=== PATIENT | female | born 1975 | race Caucasian/White ===

== ENCOUNTER → 2023-12-22 | Emergency (ER) | payer OTHER ==
[~2023-12-22] MED LIST: lisinopriL 20 MG TAB ONE
--- NOTE | 2023-12-22 16:02 | RAD REPORT ---
EXAM DESCRIPTION: CT - Head Brain Wo Cont - 12/22/2023 3:43 pm CLINICAL HISTORY: Dizziness COMPARISON: none TECHNIQUE: Computed axial tomography of the head was obtained. IV contrast was not requested. All CT scans are performed using dose optimization technique as appropriate and may include automated exposure control or mA/KV adjustment according to patient size. FINDINGS: An intracranial bleed is not seen The ventricles are normal in caliber No significant hypodense areas within the brain visualized No extra-axial fluid collection is noted. Fluid within the sinuses/ mastoids is not seen IMPRESSION: No acute intracranial abnormality is seen If patient's symptoms persist MRI of the brain would be recommended
[2023-12-22 16:04] LABS: Absolute Eosinophils 0.1 K/uL (0-0.5); Absolute Lymphocytes (CBC) 1.5 K/uL (0.7-4.9); Absolute Monocytes 0.4 K/uL (0.1-1.3); Absolute Neutrophil 3.7 K/uL (1.8-8.0); Basophils % 0.7 % (0-1.3); Eosinophils % 2.4 % (0-4.4); Hematocrit 37.1 % (36.0-45.0); Hemoglobin 12.7 g/dL (12.0-15.0); Lymphocytes % 25.8 % (15.3-44.8); MCH 30.1 pg (27.0-35.0); MCHC 34.1 g/dL (32.0-36.0); MCV 88.2 fL (80-100); MPV 8.2 fL (7.6-11.3); Monocytes % 6.2 % (3.3-12.3); Neutrophils % 64.9 % (41.7-73.7); Nucleated Red Blood Cells % 0.4 % (0-0); Platelets 74 thou/uL (152-406); RBC Red Blood Cell Count 4.21 M/uL (3.86-4.86); Red Cell Distribution Width 14.6 % (12.1-15.2)
[2023-12-22 16:21] LABS: Anion Gap 7.9 mEq/L (5.0-15.0); Potassium 3.9 mEq/L (3.5-5.1); Troponin High Sensitivity 5.4 pg/mL (<58.9)
--- NOTE | 2023-12-22 17:03 | ER ---
Nurse's Notes [facility] Name: Karla Meeks Age: 48 yrs Sex: Female : 1975 Arrival Date: 12/22/2023 Time: 15:06 Bed 19 Private MD: Diagnosis: Essential (primary) hypertension Presentation: 12/21 15:15 Chief complaint: Patient states: High blood pressure x 3 months, doesn't feel right hb today. Coronavirus screen: At this time, the client does not indicate any symptoms associated with coronavirus-19. Ebola Screen: No symptoms or risks identified at this time. Initial Sepsis Screen: Does the patient meet any 2 criteria? No. Patient's initial sepsis screen is negative. Does the patient have a suspected source of infection? No. Patient's initial sepsis screen is negative. Risk Assessment: Do you want to hurt yourself or someone else? Patient reports no desire to harm self or others. Onset of symptoms was December 22, 2023. 15:15 Method Of Arrival: Ambulatory hb 15:15 Acuity: ABBY 3 hb Triage Assessment: 15:19 General: Appears in no apparent distress. Behavior is calm, cooperative. Pain: Denies hb pain. Neuro: Level of Consciousness is awake, alert, obeys commands, Oriented to person, place, time, situation. Cardiovascular: Patient's skin is warm and dry. Respiratory: Respiratory effort is even, unlabored, Respiratory pattern is regular, symmetrical. 17:16 GI: Reports nausea. 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 - Social history:: Smoking status: Patient denies any tobacco usage or history of. - Family history:: not pertinent. - Hospitalizations: : No recent hospitalization is reported. Screenin:35 [facility] ED Fall Risk Assessment (Adult) History of falling in the last 3 months, ll1 including since admission No falls in past 3 months (0 pts) Confusion or Disorientation No (0 pts) Intoxicated or Sedated No (0 pts) Impaired Gait No (0 pts) Mobility Assist Device Used No (0 pt) Altered Elimination No (0 pt) Score/Fall Risk Level 0 - 2 = Low Risk Oriented to surroundings, Hourly rounding (assess needs \T\ fall precautionary measures) done. Abuse screen: Denies threats or abuse. Nutritional screening: No deficits noted. Tuberculosis screening: No symptoms or risk factors identified. Assessment: 16:34 General: Appears uncomfortable, Behavior is calm, cooperative, appropriate for age, ll1 Reports fatigue for not feeling well for 3 months. Neuro: No deficits noted. Cardiovascular: Reports high BP. 17:15 Reassessment: No changes from previously documented assessment. Patient and/or family ll1 updated on plan of care and expected duration. Pain level reassessed. Patient is alert, oriented x 3, equal unlabored respirations, skin warm/dry/pink. Vital Signs: 15:15 BP 160 / 92; Pulse 85; Resp 16; Temp 98.2(TE); Pulse Ox 96% on R/A; hb 16:32 BP 183 / 90; Pulse 79; Resp 17; Pulse Ox 98% on R/A; ll1 17:15 BP 171 / 88; Pulse 78; Resp 16; Pulse Ox 98% on R/A; ll1 ED Course: 15:11 Patient arrived in ED. rg4 15:12 Adria Joe MD is Attending Physician. rn 15:18 Triage completed. hb 15:19 Arm band placed on. hb 15:45 CT Head Brain wo Cont In Process Unspecified. EDMS 15:49 Initial lab(s) drawn, by me, sent to lab. Inserted saline lock: 22 gauge in right iw forearm, using aseptic technique. Blood collected. 16:26 Renée Carrasco, RN is Primary Nurse. ll1 16:29 XRAY Chest (1 view) In Process Unspecified. EDMS 16:33 Patient has correct armband on for positive identification. Client placed on continuous ll1 cardiac and pulse oximetry monitoring. NIBP monitoring applied. quality assurance monitor on. 16:33 No provider procedures requiring assistance completed. EKG done, by ED staff, reviewed ll1 by Adria Joe MD. 17:15 IV discontinued, intact, bleeding controlled, No redness/swelling at site. Pressure ll1 dressing applied. 17:16 Provided Education on: n/a. ll1 Administered Medications: 16:33 Drug: Lisinopril PO 20 mg PO once Route: PO; ll1 17:16 Follow up: Response: No adverse reaction ll1 Medication: 16:35 VIS not applicable for this client. ll1 Outcome: 17:02 Discharge ordered by . rn 17:15 Discharged to home ambulatory, ll1 17:15 Condition: stable 17:15 Discharge instructions given to patient, Instructed on discharge instructions, follow up and referral plans. medication usage, Demonstrated understanding of instructions, follow-up care, medications, Prescriptions given X 2, 17:16 Patient left the ED. ll1 Signatures: Dispatcher [employer] EDJulia Marr RN HARIS iw Adria Joe MD MD rn Baxter, Heather, RN RN hb Garcia, Rubi 4 Renée Carrasco RN RN ll1 Corrections: (The following items were deleted from the chart) 15:24 15:18 Home Meds: Lisinopril Oral; hb hb 15:24 15:18 Immunization history: Adult Immunizations up to date, hb hb
--- NOTE | 2023-12-22 17:03 | EDPHYS ---
Physician Documentation [facility] Name: Karla Meeks Age: 48 yrs Sex: Female : 1975 Arrival Date: 12/22/2023 Time: 15:06 Bed 19 Private MD: ED Physician Adria Joe HPI: 12/21 16:16 This 48 yrs old Female presents to ER via Ambulatory with complaints of Blood Pressure rn Problem. 16:17 The patient has elevated blood pressure and discovered this at home. Onset: The rn symptoms/episode began/occurred at an unknown time. Modifying factors: The symptoms are aggravated by discontinuation of meds. Severity of symptoms: At its worst the blood pressure was moderate, in the emergency department the blood pressure is unchanged. The patient has experienced similar episodes in the past. Patient reports out of her clonidine for a little while, has not noticed blood pressure elevation for the last few weeks. Reports mild headache, malaise, spontaneous subconjunctival hemorrhages. Denies any chest pain or difficulty breathing. No abdominal or back pain. No focal neurological deficits. Used to take clonidine daily but ran out. Currently just taking amlodipine. Her significant other had an appointment nearby so she thought she would swing by the ER for an evaluation.. 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 - Social history:: Smoking status: Patient denies any tobacco usage or history of. - Family history:: not pertinent. - Hospitalizations: : No recent hospitalization is reported. ROS: 16:17 Constitutional: Negative for fever, chills, and weight loss, Eyes: Negative for injury, rn pain, redness, and discharge, Neck: Negative for injury, pain, and swelling, Cardiovascular: Negative for chest pain, palpitations, and edema, Respiratory: Negative for shortness of breath, cough, wheezing, and pleuritic chest pain, Abdomen/GI: Negative for abdominal pain, nausea, vomiting, diarrhea, and constipation, Back: Negative for injury and pain, MS/Extremity: Negative for injury and deformity, Skin: Negative for injury, rash, and discoloration, Neuro: Positive for headache and generalized weakness, negative for focal weakness or tingling. No seizure. Exam: 16:17 Constitutional: This is a well developed, well nourished patient who is awake, alert, rn and in no acute distress. Ambulatory to room without difficulty or assistance. Head/Face: Normocephalic, atraumatic. Eyes: Right subconjunctival hemorrhage. Pupils equal and reactive to light Neck: Trachea midline, no masses palpated, and no cervical lymphadenopathy. Supple, full range of motion without nuchal rigidity, or vertebral point tenderness. No Meningismus. Cardiovascular: Regular rate and rhythm. No pulse deficits. Respiratory: No increased work of breathing, no retractions or nasal flaring. Abdomen/GI: Soft, non-tender MS/ Extremity: Pulses equal, no cyanosis. Neuro: Awake and alert, GCS 15, oriented to person, place, time, and situation. Cranial nerves II-XII grossly intact. Motor strength 5/5 in all extremities. Sensory grossly intact. Cerebellar exam normal. Normal gait. 17:49 ECG was reviewed by the Attending Physician. rn Vital Signs: 15:15 BP 160 / 92; Pulse 85; Resp 16; Temp 98.2(TE); Pulse Ox 96% on R/A; hb 16:32 BP 183 / 90; Pulse 79; Resp 17; Pulse Ox 98% on R/A; ll1 17:15 BP 171 / 88; Pulse 78; Resp 16; Pulse Ox 98% on R/A; ll1 MDM: 15:12 Patient medically screened. rn 16:58 Differential diagnosis: hypertensive crisis, Malignant HTN. Data reviewed: vital signs, rn nurses notes, lab test result(s), EKG, radiologic studies, plain films, and as a result, I will discharge patient. Care significantly affected by the following chronic conditions: Hypertension. Care significantly affected by the following chronic conditions: Liver Disease. Counseling: I had a detailed discussion with the patient and/or guardian regarding the historical points, exam findings, and any diagnostic results supporting the discharge/admit diagnosis, lab results, radiology results, the need for further work-up and treatment in the hospital. Response to treatment: the patient's symptoms have mildly improved after treatment, and as a result, I will discharge patient. Special discussion: I discussed with the patient/guardian in detail that at this point there is no indication for admission to the hospital. It is understood, however, that if the symptoms persist or worsen the patient needs to return immediately for re-evaluation. Based on the history and exam findings, there is no indication for further emergent testing or inpatient evaluation. I discussed with the patient/guardian the need to see the primary care provider for further evaluation of the symptoms. 16:58 ED course: No acute findings and workup for endorgan damage regarding her blood rn pressure. CT head negative. No ischemia on ECG. Will add beta-angus instead of her clonidine given still hypertensive and will have additive effect of preventing or minimizing variceal bleeding in this cirrhotic patient with 2 previous variceal bleeds. Urged her to take blood pressure diary and follow-up with PCP for further management and titration of her blood pressure medication.. 12/21 15:27 Order name: Basic Metabolic Panel; Complete Time: 16:12/21 15:27 Order name: CBC with Diff; Complete Time: 16:12/21 15:27 Order name: NT PRO-BNP; Complete Time: 16:12/21 15:27 Order name: Troponin HS; Complete Time: 16:12/21 15:27 Order name: XRAY Chest (1 view); Complete Time: 17:13 12/21 15:27 Order name: CT Head Brain wo Cont; Complete Time: 16:12/21 15:27 Order name: EKG; Complete Time: 15:12/21 15:27 Order name: Cardiac monitoring; Complete Time: 16:12/21 15:27 Order name: EKG - Nurse/Tech; Complete Time: 16:12/21 15:27 Order name: IV Saline Lock; Complete Time: 16:12/21 15:27 Order name: Labs collected and sent; Complete Time: 16:12/21 15:27 Order name: O2 Per Protocol; Complete Time: 16:12/21 15:27 Order name: O2 Sat Monitoring; Complete Time: 16:33 rn EC:49 Rate is 72 beats/min. Rhythm is regular. QRS Kersey is Normal. CA interval is normal. QRS rn interval is normal. QT interval is normal. No Q waves. T waves are Normal. No ST changes noted. Clinical impression: Normal ECG. Interpreted by me. Reviewed by me. Administered Medications: 16:33 Drug: Lisinopril PO 20 mg PO once Route: PO; ll1 17:16 Follow up: Response: No adverse reaction ll1 Disposition Summary: 12/22/23 17:02 Discharge Ordered Notes: Location: Home rn Problem: an ongoing problem rn Symptoms: have improved rn Condition: Stable rn Diagnosis - Essential (primary) hypertension rn Followup: rn - With: Private Physician - When: 7 - 10 days - Reason: Recheck today's complaints, Re-evaluation by your physician Discharge Instructions: - Discharge Summary Sheet rn - Hypertension, Adult rn - How to Take Your Blood Pressure, [id number] rn - Managing Your Hypertension rn Forms: - Medication Reconciliation Form rn - Thank You Letter rn - Antibiotic procurement internship - Prescription Opioid Use rn - Patient Portal Instructions rn - Leadership Thank You Letter rn Prescriptions: - amlodipine 10 mg Oral tablet - take 1 tablet ORAL route daily; 60 tablet; Refills: 0, Product Selection rn Permitted - Carvedilol 6.25 mg Oral tablet - take 1 tablet ORAL route 2 times per day with food; 120 tablet; Refills: 0, rn Product Selection Permitted Signatures: Dispatcher [employer] EDAdria Manzo MD MD rn Baxter, Heather RN Renée Wang RN RN ll1 Corrections: (The following items were deleted from the chart) 15:24 15:18 Home Meds: Lisinopril Oral; hb hb 15:24 15:18 Immunization history: Adult Immunizations up to date, hb hb
--- NOTE | 2023-12-22 17:12 | RAD REPORT ---
EXAM DESCRIPTION: Ronn Single View12/22/2023 4:27 pm CLINICAL HISTORY: Hypertension COMPARISON: none FINDINGS: The lungs appear clear of acute infiltrate. The heart is normal size IMPRESSION: No acute abnormalities displayed
[2023-12-22 18:01] VITALS: BP 171/88; TEMP 98.2; O2SAT 98
== END ==
LOC: ER 15:06
DX: I10 Essential (primary) hypertension (principal)
CPT/HCPCS: 36415; 70450; 71045; 80048; 83880; 84484; 85025; 93005

== ENCOUNTER 2024-07-08 13:25 | Emergency (ER) | payer OTHER, SELFPAY ==
[2024-07-08 14:40] LABS: Absolute Monocytes 0.2 K/uL (0.1-1.3); Absolute Neutrophil 1.7 K/uL (1.8-8.0); Basophils % 1.1 % (0-1.3); Eosinophils % 0.9 % (0-4.4); Hematocrit 19.6 % (36.0-45.0); Lymphocytes % 32.8 % (15.3-44.8); MCH 20.7 pg (27.0-35.0); MCHC 29.5 g/dL (32.0-36.0); MCV 70.3 fL (80-100); MPV 8.1 fL (7.6-11.3); Monocytes % 7.3 % (3.3-12.3); Neutrophils % 57.9 % (41.7-73.7); Nucleated Red Blood Cells % 0.1 % (0-0); Platelets 111 thou/uL (152-406); RBC Red Blood Cell Count 2.79 M/uL (3.86-4.86); Red Cell Distribution Width 25.1 % (12.1-15.2)
[2024-07-08 14:46] LABS: PT Prothrombin Time 13.9 SECONDS (9.4-12.5); Protime INR 1.25
[2024-07-08 14:49] LABS: Hemoglobin 5.8 g/dL (12.0-15.0)
[2024-07-08 14:50] LABS: Anisocytosis 3+; Blood Morphology Comment NOTED (NOT SEEN); Hypochromasia 1+; Platelet Estimate DECR; White Blood Cell Scan OK (OK)
[2024-07-08 14:57] LABS: Albumin 3.4 g/dL (3.4-5.0); Albumin/Globulin Ratio 0.9 (1.1-1.8); Bilirubin Direct 0.2 mg/dL (0-0.2); Bilirubin Indirect, Calculated 0.5 mg/dL (0.2-0.8); Bilirubin Total 0.7 mg/dL (0.2-1.0); Globulin 3.8 g/dL (2.3-3.5); Protein, Total 7.2 g/dL (6.4-8.2)
[2024-07-08 14:59] LABS: Anion Gap 7.4 mEq/L (5.0-15.0); Potassium 3.4 mEq/L (3.5-5.1); Troponin High Sensitivity 6.8 pg/mL (<58.9)
--- NOTE | 2024-07-08 15:14 | RAD REPORT ---
EXAMINATION: ONE VIEW CHEST XR CLINICAL INDICATION: DYSPNEA TECHNIQUE: Frontal chest projection is submitted. Examination is limited by patient positioning and t echnique. COMPARISON: 12/22/2023 FINDINGS: Mild interstitial prominence, nonspecific. The heart is normal in size. No displaced fractures identi fied. IMPRESSION: Mild nonspecific interstitial prominence is a nonspecific finding. This can be seen in cases of chron ic bronchitis, asthma or nonspecific interstitial pneumonitis.
--- NOTE | 2024-07-08 15:34 | RAD REPORT ---
EXAMINATION: CT ABDOMEN AND PELVIS WITH CONTRAST CLINICAL INDICATION: upper abd pain, hx of cirrhosis, pancreatitis TECHNIQUE: CT abdomen and pelvis was performed, after the administration of IV contrast, as per [facility] protocol. Axial, sagittal and coronal reconstructions were obtained. One or more of the following dose reduction techniques were used: Automated exposure control, adjustment of the mA and k V according to patient size, and iterative reconstruction. Unless otherwise specified, incidental findings do not require dedicated imaging follow-up. COMPARISON: No prior exam. FINDINGS: LOWER CHEST: 6 mm nonspecific nodule right lung base. Mild interstitial thickening in both lung bases . Trace bilateral pleural effusions. LIVER: Mild fatty liver is present. No focal lesion or biliary dilatation is seen. Nodular liver con tour also present. Cholecystectomy clips. SPLEEN: The spleen appears mildly to moderately enlarged. PANCREAS: No mass, ductal dilation, or imelda-pancreatic fluid. ADRENALS: 24 mm right adrenal mass. KIDNEYS: Normal size and contour. No hydronephrosis. GASTROINTESTINAL TRACT: No evidence of free air, significant intra-abdominal free fluid, bowel obstru ction or abscess. Nonspecific mild thickening of several small bowel loops. APPENDIX: Appendix not visualized, but no inflammatory changes in region of appendix. LYMPH NODES: No lymphadenopathy. MUSCULOSKELETAL: Moderate lumbosacral degenerative changes. ADDITIONAL FINDINGS: Mild pelvic free fluid. IMPRESSION: Mild liver cirrhosis pattern with moderate splenomegaly. Several thickened small bowel loops may represent portal enteropathy. 24 mm right adrenal mass statistically most likely to be a benign adenoma. Nonemergent MRI follow-up could be obtained if clinically indicated.
--- NOTE | 2024-07-08 15:37 | EDPHYS ---
Physician Documentation [facility] Name: Karla Meeks Age: 49 yrs Sex: Female : 1975 Arrival Date: 07/08/2024 Time: 13:25 Bed 4 Private MD: ED Physician Clement Dubois HPI: 07/08 14:05 This 49 yrs old Female presents to ER via Ambulatory with complaints of ec2 Shortness Of Breath. 14:06 Patient with history of cirrhosis secondary to hepatitis C arrives today for evaluation ec2 of upper abdominal pain and chest pain. Ongoing for 1.5 months. No specific alleviating or exacerbating factors. . 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 - Infectious Disease History:: Denies. - Social history:: Smoking status: Patient reports the use of cigarette tobacco products. ROS: 14:06 Constitutional: as per hpi ec2 Exam: 14:06 Constitutional: GEN: NAD Head: atraumatic Eyes: EOMI Ears: External ears are ec2 normal. CV: regular rate LUNGS: no respiratory distress ABD: non-distended SKIN: no evidence of rashes MSK: no evidence of trauma Vital Signs: 13:45 BP 136 / 92; Pulse 82; Resp 18 S; Temp 97.8(TE); Pulse Ox 100% on R/A; Weight 72.12 kg aa5 (R); Height 5 ft. 4 in. (R); 14:27 BP 148 / 63; Pulse 75; Resp 16; Pulse Ox 100% on R/A; cm10 16:12 BP 140 / 88; Pulse 72; Resp 16; Pulse Ox 100% on R/A; cm10 17:00 BP 137 / 77; Pulse 77; Resp 18; Pulse Ox 100% on R/A; cm10 17:44 BP 138 / 67; Pulse 70; Resp 18; Pulse Ox 96% ; cm10 18:00 BP 124 / 67; Pulse 70; Resp 16; Pulse Ox 100% on R/A; cm10 18:30 BP 134 / 70; Pulse 70; Resp 16; Pulse Ox 99% on R/A; cm10 19:00 BP 148 / 67; Pulse 67; Resp 16; Pulse Ox 100% on R/A; cm10 13:45 Body Mass Index 27.29 (72.12 kg, 162.56 cm) aa5 MDM: 14:06 Data reviewed: vital signs. ED course: Patient arrives today for abdominal pain and ec2 chest pain. Examination remarkable for nontoxic and appears otherwise in no acute distress. Obtain lab work, CT imaging. Differential diagnoses include processes such as pancreatitis, liver disease, ACS, doubt PE or dissection.. 14:33 ED course: EKG independently reviewed and interpreted by me, shows normal sinus rhythm, ec2 rate of 80, no acute ST segment elevations, intervals are nonactionable.. 14:54 ED course: Patient with a significant anemia with a hemoglobin of 5.8. Will type and ec2 screen and transfuse. . 15:19 ED course: Metabolic profile shows slight hypokalemia with a potassium of 3.1. Lipase ec2 is slightly elevated. LFTs are nonactionable. Troponin is within normal ranges. Chest x-ray shows nonspecific findings. . 15:36 ED course: Nonacute CT scan. Will transfer for GI capable facility given the patient's ec2 cirrhosis, anemia, concern for black stools as well.. 15:37 Patient medically screened. ec2 16:45 ED course: Discussed case w/ ICU doc at [facility] who prefers [facility] admission. ec2 Discussed case w/ GI doc and Hospitalist at [facility], also discussed w/ ICU doc at [facility]. . 17:18 ED course: Ultimately pt to be admitted to [facility]. . ec2 07/08 13:59 Order name: Basic Metabolic Panel; Complete Time: 15:19 ec2 07/08 13:59 Order name: CBC with Diff; Complete Time: 14:54 ec2 07/08 13:59 Order name: NT PRO-BNP; Complete Time: 15:19 ec2 07/08 13:59 Order name: PT-INR; Complete Time: 14:54 ec2 07/08 13:59 Order name: Troponin HS; Complete Time: 15:19 ec2 07/08 14:05 Order name: Lipase; Complete Time: 15:19 ec2 07/08 14:05 Order name: LFT's; Complete Time: 15:19 ec2 07/08 14:49 Order name: Type And Screen ec2 07/08 14:50 Order name: CBC Smear Scan; Complete Time: 14:54 EDMS 07/08 16:33 Order name: ABO/RH no charge; Complete Time: 16:40 EDMS 07/08 16:37 Order name: Packed RBC Leukored EDMS 07/08 13:59 Order name: XRAY Chest (1 view); Complete Time: 15:19 ec2 07/08 14:05 Order name: CT Abd/Pelvis - IV Contrast Only; Complete Time: 15:36 ec2 07/08 13:59 Order name: EKG; Complete Time: 14:00 ec2 07/08 13:59 Order name: Cardiac monitoring; Complete Time: 14:34 ec2 07/08 13:59 Order name: EKG - Nurse/Tech; Complete Time: 14:34 ec2 07/08 13:59 Order name: IV Saline Lock; Complete Time: 14:39 ec2 07/08 13:59 Order name: Labs collected and sent; Complete Time: 14:39 ec2 07/08 13:59 Order name: O2 Per Protocol; Complete Time: 14:34 ec2 07/08 13:59 Order name: O2 Sat Monitoring; Complete Time: 14:34 ec2 07/08 14:55 Order name: Consent for Blood Transfusion; Complete Time: 16:28 ec2 Administered Medications: 16:28 Drug: Pantoprazole IVP 80 mg IVP once Route: IVP; Site: right forearm; 10 17:00 Follow up: Response: No adverse reaction [facility] 16:28 Drug: Pantoprazole IV 8 mg/hr IV at 25 ml/hr continuous; (Standard dilution is 80 mg in cm10 250 mL NS) Route: IV; Rate: 25 ml/hr; Site: right forearm; 19:19 Follow up: Response: No adverse reaction; IV Status: Infusion continued upon transfer 10 17:39 Drug: Rocephin IV 1 grams IV at calculated rate once; Given slow IV push per pharmacy cm10 instructions Route: IV; Rate: calculated rate; Site: left forearm; 17:45 Follow up: Response: No adverse reaction; IV Status: Completed infusion; IV Intake: [id number] 17:39 Drug: Octreotide IV 50 mcg IV at bolus once Route: IV; Rate: bolus; Site: left forearm; cm10 17:45 Follow up: Response: No adverse reaction; IV Status: Completed infusion; IV Intake: cm10 0.5ml 18:41 Drug: Ondansetron IVP 4 mg IVP once; over 2 minutes Route: IVP; Site: right forearm; cm10 19:19 Follow up: Response: No adverse reaction cm10 Disposition: 15:36 Critical Care:. ec2 Disposition Summary: 07/08/24 15:37 Transfer Ordered Notes: Transfer Location: Other Acute Care Facility ec2 Reason: Higher level of care ec2 Condition: Stable ec2 Problem: an acute exacerbation ec2 Symptoms: are unchanged ec2 Accepting Physician: transferring doc(07/08/24 19:21) cm10 Diagnosis - GI Bleed/ Gastrointestinal hemorrhage, unspecified ec2 - Anemia, unspecified ec2 - Other cirrhosis of liver ec2 Forms: - Medication Reconciliation Form ec2 - SBAR form ec2 Critical care time excluding procedures: 15:36 Critical care time: Bedside Care: 30 minutes, Consultation: 5 minutes. Total time: 35 ec2 minutes Signatures: Dispatcher [employer] Eleanor Sylvester RN RN aa5 Anne Gorman RN RN cm10 Clement Dubois MD MD ec2 Corrections: (The following items were deleted from the chart) 14:57 14:57 BB Add On+BB.LAB.BRZ ordered. EDMS EDMS 16:24 15:37 transferring doc ec2 ec2 16:36 14:55 PACKED RBC LEUKORED+BB.LAB.BRZ ordered. EDMS EDMS 16:36 14:57 ABO/RH typing ordered. EDMS EDMS 16:36 14:57 Antibody Screen ordered. EDMS EDMS 19:21 16:24 transferring doc ec2 cm10
--- NOTE | 2024-07-08 15:37 | ER ---
Nurse's Notes [facility] Name: Karla Meeks Age: 49 yrs Sex: Female : 1975 Arrival Date: 07/08/2024 Time: 13:25 Bed 4 Private MD: Diagnosis: GI Bleed/ Gastrointestinal hemorrhage, unspecified;Anemia, unspecified;Other cirrhosis of liver Presentation: 07/08 13:45 Chief complaint: Patient states: SOB that began 1 1/2 months ago. Pt also reports upper aa5 abdominal pain. Coronavirus screen: At this time, the client does not indicate any symptoms associated with coronavirus-19. Ebola Screen: Patient denies travel to an Ebola-affected area in the 21 days before illness onset. Initial Sepsis Screen: Does the patient meet any 2 criteria? No. Patient's initial sepsis screen is negative. Does the patient have a suspected source of infection? No. Patient's initial sepsis screen is negative. Risk Assessment: Do you want to hurt yourself or someone else? Patient reports no desire to harm self or others. Onset of symptoms was May 2024. 13:45 Method Of Arrival: Ambulatory aa5 13:45 Acuity: ABBY 3 aa5 Triage Assessment: 16:00 Respiratory: Onset: The symptoms/episode began/occurred 6 weeks, the patient reports cm10 symptoms have resolved. 16:00 General: Appears in no apparent distress. comfortable, Behavior is calm, cooperative. 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 - Infectious Disease History:: Denies. - Social history:: Smoking status: Patient reports the use of cigarette tobacco products. Screenin:38 [facility] ED Fall Risk Assessment (Adult) History of falling in the last 3 months, cm10 including since admission No falls in past 3 months (0 pts) Confusion or Disorientation No (0 pts) Intoxicated or Sedated No (0 pts) Impaired Gait No (0 pts) Mobility Assist Device Used No (0 pt) Altered Elimination No (0 pt) Score/Fall Risk Level 0 - 2 = Low Risk Oriented to surroundings, Maintained a safe environment, Hourly rounding (assess needs \T\ fall precautionary measures) done. Abuse screen: Denies threats or abuse. Denies injuries from another. Nutritional screening: No deficits noted. Tuberculosis screening: No symptoms or risk factors identified. Assessment: 14:37 General: Appears in no apparent distress. comfortable, Behavior is calm, cooperative, cm10 appropriate for age. Pain: Complains of pain in abdomen. Neuro: No deficits noted. Level of Consciousness is awake, alert, obeys commands, Oriented to person, place, time, situation, Appropriate for age. Cardiovascular: No deficits noted. Heart tones present Patient's skin is warm and dry. Rhythm is regular. Respiratory: Airway is patent Respiratory effort is even, unlabored, Respiratory pattern is regular, symmetrical, Breath sounds are clear bilaterally. GI: Reports lower abdominal pain, upper abdominal pain. Derm: No deficits noted. Skin is intact, Skin is pink, warm \T\ dry. 17:46 Reassessment: Patient appears in no apparent distress at this time. No changes from cm10 previously documented assessment. Patient and/or family updated on plan of care and expected duration. Pain level reassessed. Patient is alert, oriented x 3, equal unlabored respirations, skin warm/dry/pink. 17:53 Reassessment: Blood transfusion initiated at this time. cm10 18:08 Reassessment: Pt tolerating blood transfusion well at this time. cm10 18:53 Reassessment: Patient appears in no apparent distress at this time. No changes from cm10 previously documented assessment. Patient and/or family updated on plan of care and expected duration. Pain level reassessed. Patient is alert, oriented x 3, equal unlabored respirations, skin warm/dry/pink. Pt tolerating blood transfusion well. No S/S of symptoms of transfusion reaction. Vital Signs: 13:45 BP 136 / 92; Pulse 82; Resp 18 S; Temp 97.8(TE); Pulse Ox 100% on R/A; Weight 72.12 kg aa5 (R); Height 5 ft. 4 in. (R); 14:27 BP 148 / 63; Pulse 75; Resp 16; Pulse Ox 100% on R/A; cm10 16:12 BP 140 / 88; Pulse 72; Resp 16; Pulse Ox 100% on R/A; cm10 17:00 BP 137 / 77; Pulse 77; Resp 18; Pulse Ox 100% on R/A; cm10 17:44 BP 138 / 67; Pulse 70; Resp 18; Pulse Ox 96% ; cm10 18:00 BP 124 / 67; Pulse 70; Resp 16; Pulse Ox 100% on R/A; cm10 18:30 BP 134 / 70; Pulse 70; Resp 16; Pulse Ox 99% on R/A; cm10 19:00 BP 148 / 67; Pulse 67; Resp 16; Pulse Ox 100% on R/A; cm10 13:45 Body Mass Index 27.29 (72.12 kg, 162.56 cm) aa5 ED Course: 13:37 Patient arrived in ED. mg5 13:37 Clement Dubois MD is Attending Physician. ec2 13:45 Arm band placed on. aa5 13:46 Triage completed. aa5 14:16 Patient placed in an exam room, on a stretcher. ll1 14:18 Anne Gorman, RN is Primary Nurse. cm10 14:34 EKG done, by ED staff, reviewed by Clement Dubois MD. mb9 14:38 Patient has correct armband on for positive identification. Bed in low position. Call cm10 light in reach. Side rails up X 1. Provided Education on: ER process and procedures.. Client placed on continuous cardiac and pulse oximetry monitoring. NIBP monitoring applied. alarm security or surveillance monitor on. Door closed. Lights dimmed. Warm blanket given. Pillow given. 14:38 Initial lab(s) drawn, by me, sent to lab. Inserted saline lock: 20 gauge in right cm10 forearm, using aseptic technique. Blood collected. Flushed with 10 mL NS. 14:39 LFT's Sent. cm10 14:39 Lipase Sent. cm10 14:39 Basic Metabolic Panel Sent. cm10 14:39 CBC with Diff Sent. cm10 14:39 NT PRO-BNP Sent. cm10 14:39 PT-INR Sent. cm10 14:39 Troponin HS Sent. cm10 15:09 XRAY Chest (1 view) In Process Unspecified. EDMS 15:26 CT Abd/Pelvis - IV Contrast Only In Process Unspecified. EDMS 15:30 Missed attempt(s): 22 gauge in right hand. forearm. Bleeding controlled, band aid cm10 applied, catheter tip intact. 16:00 initiated a transfer with Shasta Adams Rn from the [facility] transfer center. eb 16:[address] Lennox Rodriguez the laboratory cureman generation manager for [facility] with eb Dr. Dubois for patient transfer consultation. 16:38 Connected the hospitalist generation manager for [facility] with Dr. Dubois for patient eb transfer consultation. 16:45 Accessed peripheral vein via ultrasound, utilizing dynamic ultrasound technique Clean \T\ cm10 dry. Dressing intact. Good blood return. Flushes easily. 20G Left forearm. 17:14 connected the laboratory cureman and the hospitalist generation manager for [facility] with Dr. gayle Dubois for patient transfer consultation. 17:19 administrative approval given by Shasta Adams Rn/ patient has been accepted to [facility] 15 tower bed - 1509/ Dr. Reggie Longo has accepted the patient in transfer/ report to be called to [phone]. 19:15 Handoff report given to David Deshpande with [facility] who assumes care of patient. cm10 Blood checked with Raymond at the bedside prior to handing off care. Pt leaving A\T\Ox4, respirations even and unlabored. No S/S of transfusion reaction. Pt leaving with blood and Protonix infusing. 19:20 No provider procedures requiring assistance completed. Patient transferred, IV remains cm10 in place. Administered Medications: 16:28 Drug: Pantoprazole IVP 80 mg IVP once Route: IVP; Site: right forearm; cm10 17:00 Follow up: Response: No adverse reaction cm10 16:28 Drug: Pantoprazole IV 8 mg/hr IV at 25 ml/hr continuous; (Standard dilution is 80 mg in cm10 250 mL NS) Route: IV; Rate: 25 ml/hr; Site: right forearm; 19:19 Follow up: Response: No adverse reaction; IV Status: Infusion continued upon transfer cm10 17:39 Drug: Rocephin IV 1 grams IV at calculated rate once; Given slow IV push per pharmacy cm10 instructions Route: IV; Rate: calculated rate; Site: left forearm; 17:45 Follow up: Response: No adverse reaction; IV Status: Completed infusion; IV Intake: [id number] 17:39 Drug: Octreotide IV 50 mcg IV at bolus once Route: IV; Rate: bolus; Site: left forearm; cm10 17:45 Follow up: Response: No adverse reaction; IV Status: Completed infusion; IV Intake: cm10 0.5ml 18:41 Drug: Ondansetron IVP 4 mg IVP once; over 2 minutes Route: IVP; Site: right forearm; cm10 19:19 Follow up: Response: No adverse reaction cm10 Medication: 14:38 VIS not applicable for this client. cm10 17:53 Blood products: PRBCs X 1 unit given. See transfusion record Blood transfusion cm10 initiated at this time. Intake: 17:45 IV: 10ml; Total: 10ml. cm10 17:45 IV: 1ml; Total: 11ml. cm10 Outcome: 15:37 ER care complete, transfer ordered by . ec2 19:19 [facility]red by [facility] to [facility], cm10 19:19 Condition: stable 19:19 Instructed on the need for transfer, 19:21 Patient left the ED. cm10 Signatures: Dispatcher [employer] EDEleanor Ortega RN RN aa5 Brittny Kiran Lynsay, RN RN ll1 Deepa Leiva, RN RN mb9 Anne Gorman RN RN cm10 Brook Alcantar 5 Clement Dubois MD MD ec2 Corrections: (The following items were deleted from the chart) 13:47 13:45 BP 136 / 92; Pulse 82bpm; Resp 18bpm; Spontaneous; Pulse Ox 100% RA; Temp 97.8F aa5 Temporal; aa5
[2024-07-08] MEDS ORDERED: PANTOPRAZOLE 40 MG INJ ONE (16:03)
[2024-07-08] MEDS ORDERED: NA CHLORIDE 0.9% 250 ML ONE ×2 (16:04→17:41)
[2024-07-08] MEDS ORDERED: CEFTRIAXONE 1000 MG/VIAL ONE (17:24)
[2024-07-08] MEDS ORDERED: OCTREOTIDE ACETATE 100 MCG/ML ONE (17:24)
[2024-07-08] MEDS ORDERED: ONDANSETRON 4 MG/2 ML VIAL ONE (18:23)
[2024-07-08 23:18] VITALS: TEMP 97.8
[2024-07-08 23:30] VITALS: BP 148/67; O2SAT 100
== END 2024-07-08 19:21 ==
LOC: ER 13:25
PROC: 30233N1 Transfusion of Nonautologous Red Blood Cells into Peripheral Vein, Percutaneous Approach (ICD-10-PCS; principal; 2024-07-08)
DX: D64.9 Anemia, unspecified (principal); K74.69 Other cirrhosis of liver
CPT/HCPCS: 36415; 71045; 74177; 80048; 80076; 83690; 83880; 84484; 85025; 85610; 86850; 86900; 86901; 86920; 93005; J0696; J2354; J2405; J2470; J7050; P9016; Q9967

== ENCOUNTER 2024-07-11 16:19 | Emergency (ER) | payer SELFPAY ==
[2024-07-11 16:55] LABS: Absolute Eosinophils 0.1 K/uL (0-0.5); Absolute Lymphocytes (CBC) 1.1 K/uL (0.7-4.9); Absolute Monocytes 0.2 K/uL (0.1-1.3); Absolute Neutrophil 2.1 K/uL (1.8-8.0); Basophils % 0.5 % (0-1.3); Eosinophils % 1.6 % (0-4.4); Hematocrit 28.1 % (36.0-45.0); Hemoglobin 8.9 g/dL (12.0-15.0); Lymphocytes % 30.4 % (15.3-44.8); MCH 24.1 pg (27.0-35.0); MCHC 31.7 g/dL (32.0-36.0); MPV 8.5 fL (7.6-11.3); Monocytes % 5.7 % (3.3-12.3); Neutrophils % 61.8 % (41.7-73.7); Nucleated Red Blood Cells % 0.2 % (0-0); Platelets 82 thou/uL (152-406); Red Cell Distribution Width 25.1 % (12.1-15.2)
[2024-07-11] MEDS ORDERED: MAGNES/ALUMIN/SIMET 30ML UCUP ONE (16:56)
[2024-07-11] MEDS ORDERED: LIDOCAINE VISCOUS 2% 10ML ORAL SOLN ONE (16:57)
[2024-07-11] MEDS ORDERED: FAMOTIDINE 20 MG/2 ML VIAL IV ONE (16:57)
[2024-07-11 16:58] LABS: Protime INR 1.26
[2024-07-11] MEDS ORDERED: FAMOTIDINE 20 MG TAB ONE (17:09)
[2024-07-11 17:14] LABS: Anion Gap 5.7 mEq/L (5.0-15.0); Potassium 3.7 mEq/L (3.5-5.1); Troponin High Sensitivity 7.1 pg/mL (<58.9)
--- NOTE | 2024-07-11 17:48 | EDPHYS ---
Physician Documentation [facility] Name: Karla Meeks Age: 49 yrs Sex: Female : 1975 Arrival Date: 07/11/2024 Time: 16:19 Bed 2 Private MD: ED Physician Clement Dubois HPI: 07/11 16:44 This 49 yrs old Female presents to ER via Ambulatory with complaints of Chest ec2 Pain. 16:44 Patient arrives today for left-sided nonexertional chest pain that started last night. ec2 Patient was recently admitted to the hospital with a GI bleed, found to have varices that were not bleeding, subsequently banded. Patient reports no bleeding, states that the pain is different than most recent visits and patient denies any abdominal pain or melanic stools.. Historical: - Allergies: 16:32 No Known Allergies; ap3 - PMHx: 16:32 cirrhosis of liver; HEP C; Hypertension; ap3 - PSHx: 16:32 section; abdominal sx; Cholecystectomy; tubal ligation; ap3 - Immunization history:: Client reports having NOT received the Covid vaccine. Flu vaccine is not up to date. - Infectious Disease History:: Denies. - Social history:: Smoking status: Patient/guardian denies using tobacco, Stopped _ months ago 1. ROS: 16:44 Constitutional: as per hpi ec2 Exam: 16:44 Constitutional: GEN: NAD Head: atraumatic Eyes: EOMI Ears: External ears are ec2 normal. CV: regular rate LUNGS: no respiratory distress ABD: non-distended SKIN: no evidence of rashes MSK: no evidence of trauma, slight left-sided chest wall TTP without deformities or crepitus appreciated. Vital Signs: 16:30 BP 180 / 71; Pulse 67; Resp 17; Temp 98.8; Pulse Ox 100% ; Weight 72.57 kg; Height 5 ap3 ft. 4 in. ; Pain 9/10; 17:15 BP 157 / 66; Pulse 63; Resp 17; Pulse Ox 99% on R/A; Pain 5/10; hb 18:00 BP 136 / 78; Pulse 66; Resp 16; Pulse Ox 99% on R/A; hb 16:30 Body Mass Index 27.46 (72.57 kg, 162.56 cm) ap3 16:30 Pain Scale: Adult ap3 17:15 Pain Scale: Adult hb MDM: 16:32 Medical Screening Exam initiated ec2 16:44 Data reviewed: vital signs. ED course: Patient arrives today for evaluation of ec2 left-sided chest pain. Examination remarkable for reproducible chest wall TTP without deformities or crepitus. Will obtain lab work, EKG, chest x-ray. Differential clues processes such as ACS, gastritis, costochondritis. Doubt PE, doubt dissection.. 16:54 ED course: EKG independently reviewed and interpreted by me, shows normal sinus rhythm, ec2 rate of 61, no acute ST segment elevations, intervals are nonactionable. . 17:17 ED course: Metabolic profile is nonactionable. CBC shows anemia with a hemoglobin 8.9. ec2 Troponin is within normal ranges. BNP is minimally elevated. Ultimately patient with duration of symptoms onset of greater than 18 hours, will forego obtaining repeat EKG and troponin given duration. Suspect gastritis/reflux . 07/11 16:32 Order name: Basic Metabolic Panel; Complete Time: 17:16 ec2 07/11 16:32 Order name: CBC with Diff ec2 07/11 16:32 Order name: NT PRO-BNP; Complete Time: 17:16 ec2 07/11 16:32 Order name: PT-INR; Complete Time: 17:16 ec2 07/11 16:32 Order name: Troponin HS; Complete Time: 17:16 ec2 07/11 17:58 Order name: Manual Differential EDMS 07/11 16:32 Order name: XRAY Chest (1 view); Complete Time: 17:51 ec2 07/11 16:32 Order name: EKG; Complete Time: 16:33 ec2 07/11 16:32 Order name: Cardiac monitoring; Complete Time: 16:53 ec2 07/11 16:32 Order name: EKG - Nurse/Tech; Complete Time: 16:53 ec2 07/11 16:32 Order name: IV Saline Lock; Complete Time: 16:53 ec2 07/11 16:32 Order name: Labs collected and sent; Complete Time: 16:53 ec2 07/11 16:32 Order name: O2 Per Protocol; Complete Time: 16:53 ec2 07/11 16:32 Order name: O2 Sat Monitoring; Complete Time: 16:53 ec2 Administered Medications: 17:05 Drug: Viscous Lidocaine Mucous Membrane Liquid (4 %) 10 ml Mucous Membrane once Route: hb Mucous Membrane; 18:07 Follow up: Response: No adverse reaction; Pain is decreased hb 17:16 Not Given (no PIV access, change to PO per MD): [id number] mg IVP once; dilute with hb 10 mL 0.9% NaCl; give over 2 minutes 17:16 Drug: Famotidine PO 20 mg PO once Route: PO; hb 18:07 Follow up: Response: No adverse reaction; Pain is decreased hb Disposition Summary: 07/11/24 17:47 Discharge Ordered Condition: Stable ec2 Diagnosis - Acute gastritis ec2 Followup: ec2 - With: Private Physician - When: - Reason: Re-evaluation by your physician Followup: ec2 - With: Gregg Cruz MD - When: - Reason: Recheck today's complaints Discharge Instructions: - Discharge Summary Sheet ec2 - Gastritis, Adult, [id number] ec2 Forms: - Work release form iw - Medication Reconciliation Form ec2 - Antibiotic Education ec2 - Prescription Opioid Use ec2 - Patient Portal Instructions ec2 - Leadership Thank You Letter ec2 Prescriptions: - Lidocaine Viscous - take 10 milliliter ORAL route 3 times per day; 300 milliliter; Refills: 0, ec2 Product Selection Permitted Signatures: Dispatcher [employer] Fabiana Fontenot RN Jessika Nance RN RN ap3 Clement Dubois MD MD ec2 Corrections: (The following items were deleted from the chart) 16:32 16:32 Allergies: No Known Allergies; ap3 ap3
--- NOTE | 2024-07-11 17:48 | ER ---
Nurse's Notes [facility] Name: Karla Meeks Age: 49 yrs Sex: Female : 1975 Arrival Date: 07/11/2024 Time: 16:19 Bed 2 Private MD: Diagnosis: Acute gastritis Presentation: 07/11 16:30 Chief complaint: Patient states: she had an endoscopy yesterday and was discharged last ap3 night from the hospital after a transfer. patient reports a burning feeling on the left side of her chest that she rates a 9/10 on the pain scale. Coronavirus screen: At this time, the client does not indicate any symptoms associated with coronavirus-19. Ebola Screen: No symptoms or risks identified at this time. Initial Sepsis Screen: Does the patient meet any 2 criteria? No. Patient's initial sepsis screen is negative. Does the patient have a suspected source of infection? No. Patient's initial sepsis screen is negative. Risk Assessment: Do you want to hurt yourself or someone else? Patient reports no desire to harm self or others. Onset of symptoms was July 11, 2024 at 10:00. 16:30 Method Of Arrival: Ambulatory ap3 16:30 Acuity: ABBY 2 ap3 Triage Assessment: 16:33 General: Appears in no apparent distress. Behavior is calm, cooperative, appropriate ap3 for age. Pain: Complains of pain in chest Pain does not radiate. Pain currently is 9 out of 10 on a pain scale. Quality of pain is described as burning, Pain began this morning. Neuro: Level of Consciousness is awake, alert, obeys commands, Oriented to person, place, time, situation, Appropriate for age Gait is steady, Speech is normal. Cardiovascular: Reports chest pain. Respiratory: Airway is patent Respiratory effort is even, unlabored, Respiratory pattern is regular, symmetrical. GI: Reports indigestion, nausea. Historical: - Allergies: 16:32 No Known Allergies; ap3 - PMHx: 16:32 cirrhosis of liver; HEP C; Hypertension; ap3 - PSHx: 16:32 section; abdominal sx; Cholecystectomy; tubal ligation; ap3 - Immunization history:: Client reports having NOT received the Covid vaccine. Flu vaccine is not up to date. - Infectious Disease History:: Denies. - Social history:: Smoking status: Patient/guardian denies using tobacco, Stopped _ months ago 1. Screenin:34 [facility] ED Fall Risk Assessment (Adult) History of falling in the last 3 months, ap3 including since admission No falls in past 3 months (0 pts) Confusion or Disorientation No (0 pts) Intoxicated or Sedated No (0 pts) Impaired Gait No (0 pts) Mobility Assist Device Used No (0 pt) Altered Elimination No (0 pt) Score/Fall Risk Level 0 - 2 = Low Risk Oriented to surroundings, Maintained a safe environment, Educated pt \T\ family on fall prevention, incl call for assistance when getting out of bed, Assessed \T\ reinforced patient's understanding of fall precautions, Hourly rounding (assess needs \T\ fall precautionary measures) done, Used ambulatory aids as needed (educated on \T\ assisted with), Used gait belt as appropriate. Abuse screen: Denies threats or abuse. Nutritional screening: No deficits noted. Tuberculosis screening: No symptoms or risk factors identified. Assessment: 17:00 General: Appears in no apparent distress. Behavior is calm, cooperative. Pain: Pain hb currently is 5 out of 10 on a pain scale. Neuro: Level of Consciousness is awake, alert, obeys commands, Oriented to person, place, time, situation. Cardiovascular: Reports chest pain, Patient's skin is warm and dry. Respiratory: Respiratory effort is even, unlabored, Respiratory pattern is regular, symmetrical. GI: No signs and/or symptoms were reported involving the gastrointestinal system. : No signs and/or symptoms were reported regarding the genitourinary system. EENT: No signs and/or symptoms were reported regarding the EENT system. Derm: Skin is pink, warm \T\ dry. Musculoskeletal: No signs and/or symptoms reported regarding the musculoskeletal system. Vital Signs: 16:30 BP 180 / 71; Pulse 67; Resp 17; Temp 98.8; Pulse Ox 100% ; Weight 72.57 kg; Height 5 ap3 ft. 4 in. ; Pain 9/10; 17:15 BP 157 / 66; Pulse 63; Resp 17; Pulse Ox 99% on R/A; Pain 5/10; hb 18:00 BP 136 / 78; Pulse 66; Resp 16; Pulse Ox 99% on R/A; hb 16:30 Body Mass Index 27.46 (72.57 kg, 162.56 cm) ap3 16:30 Pain Scale: Adult ap3 17:15 Pain Scale: Adult hb ED Course: 16:23 Patient arrived in ED. ra3 16:29 Clement Dubois MD is Attending Physician. ec2 16:32 Triage completed. ap3 16:34 Arm band placed on right wrist. ap3 16:34 Patient maintains SpO2 saturation greater than 95% on room air. ap3 16:38 Paul Silver, RN is Primary Nurse. bp 16:45 Missed attempt(s): 22 gauge in left forearm. bc6 16:55 Basic Metabolic Panel Sent. bc6 16:55 CBC with Diff Sent. bc6 16:55 NT PRO-BNP Sent. bc6 16:55 PT-INR Sent. bc6 16:55 Troponin HS Sent. bc6 16:55 Initial lab(s) drawn, by me, sent to lab. EKG done, by ED staff, reviewed by Clement Dubois MD. Inserted saline lock: 20 gauge in left antecubital area, using aseptic technique. Blood collected. Flushed with 10 mL NS. 16:58 XRAY Chest (1 view) In Process Unspecified. EDMS 17:05 IV discontinued, intact, bleeding controlled, No redness/swelling at site. Pressure hb dressing applied. 17:15 Patient has correct armband on for positive identification. Placed in gown. Bed in low hb position. Call light in reach. Provided Education on: tests, result times, use of call light . Client placed on continuous cardiac and pulse oximetry monitoring. NIBP monitoring applied. surveillance monitor on. Pulse ox on. NIBP on. 17:47 Gregg Cruz MD is Referral Physician. ec2 18:06 No provider procedures requiring assistance completed. hb Administered Medications: 17:05 Drug: Viscous Lidocaine Mucous Membrane Liquid (4 %) 10 ml Mucous Membrane once Route: hb Mucous Membrane; 18:07 Follow up: Response: No adverse reaction; Pain is decreased hb 17:16 Not Given (no PIV access, change to PO per MD): [id number] mg IVP once; dilute with hb 10 mL 0.9% NaCl; give over 2 minutes 17:16 Drug: Famotidine PO 20 mg PO once Route: PO; hb 18:07 Follow up: Response: No adverse reaction; Pain is decreased hb Medication: 17:15 VIS not applicable for this client. hb Outcome: 17:47 Discharge ordered by . ec2 18:06 Discharged to home ambulatory, hb 18:06 Condition: stable 18:06 Discharge instructions given to patient, Instructed on discharge instructions, follow up and referral plans. medication usage, Demonstrated understanding of instructions, follow-up care, medications, Prescriptions given X 1, 18:07 Patient left the ED. hb Signatures: Dispatcher [employer] EDMA Fabiana Melton RN RN Paul Silver RN RN Jessika Baer RN RN ap3 Franny Mario [facility] Clement Dubois MD MD ec2 Carmencita Francisco ra3 Corrections: (The following items were deleted from the chart) 16:32 16:32 Allergies: No Known Allergies; ap3 ap3 17:15 17:06 Famotidine IVP 20 mg IVP in right antecubital hb hb
--- NOTE | 2024-07-11 17:50 | RAD REPORT ---
EXAMINATION: ONE VIEW CHEST XR CLINICAL INDICATION: Female, 49 years old.,CHEST PAIN TECHNIQUE: Frontal chest projection is submitted. Examination is limited by patient positioning and t echnique. COMPARISON: 07/08/2024 FINDINGS: The lungs are well inflated with stable diffuse interstitial prominence. No pneumothorax or sizable effusion. The heart is normal in size. IMPRESSION: Stable diffuse interstitial prominence, may reflect atypical infection, or reactive airway changes.
[2024-07-11 17:57] LABS: Anisocytosis 2+; Blood Morphology Comment NOTED (NOT SEEN); Differential Total Cells Count 100; Eosinophils 2 % (0-3); Lymphocytes 20 % (15-42); Monocytes 2 % (0-10); Platelet Estimate DECR; Segmented Neutrophils 76 % (40-80)
[2024-07-11 17:58] LABS: Hypochromasia 2+; Microcytosis 2+; Polychromasia 1+
[2024-07-11 20:32] VITALS: TEMP 98.8
[2024-07-11 20:34] VITALS: BP 136/78; O2SAT 99
--- NOTE | 2024-07-13 11:56 | EKG ---
Test Date: 2024-07-11 Test Time: 16:52:40 Sheep Killer: NITISH MEASUREMENT RESULTS: Intervals: Rate: 61 MS: 160 QRSD: 86 QT: 434 QTc: 436 [place]: P: 73 MS: 160 QRS: 54 T: 65 INTERPRETIVE STATEMENTS: Normal sinus rhythm Low voltage QRS Borderline ECG Compared to ECG 07/08/2024 14:30:53 Short MS interval no longer present Myocardial infarct finding no longer present Electronically Signed On 07-13-24 11:52:40 CDT by Thai Mccray
== END 2024-07-11 18:07 | disposition home or self-care (01) ==
LOC: ER 16:19
DX: K29.00 Acute gastritis without bleeding (principal)
CPT/HCPCS: 36415; 71045; 80048; 83880; 84484; 85025; 85610; 93005; 99285

== ENCOUNTER 2024-10-08 15:55 | Emergency (ER) | payer OTHER, SELFPAY ==
[2024-10-08 16:57] LABS: SARS-CoV-2 Antigen CONTROL BLUE LINE VIS/BG OK; SARS-CoV-2 Antigen Rapid Res Negative (Negative)
--- NOTE | 2024-10-08 18:18 | RAD REPORT ---
EXAMINATION: ONE VIEW CHEST XR CLINICAL INDICATION: Female, 49 years old.,COUGH TECHNIQUE: Frontal chest projection is submitted. Examination is limited by patient positioning and t echnique. COMPARISON: 07/11/2024. FINDINGS: The lungs are well inflated and clear. Chronic interstitial changes more pronounced centrally, stable . No pneumothorax or sizable effusion. The heart is normal in size. Mediastinal contours are unremarkable. IMPRESSION: No acute intrathoracic abnormalities.
[2024-10-08] MEDS ORDERED: ACETAMINOPHEN 325 MG TABLET ONE (18:22)
--- NOTE | 2024-10-08 18:28 | ER ---
Nurse's Notes [facility] Name: Karla Meeks Age: 49 yrs Sex: Female : 1975 Arrival Date: 10/08/2024 Time: 15:55 Bed 10 Private MD: Diagnosis: Influenza due to identified novel influenza A virus with other respiratory manifestations Presentation: 10/08 16:10 Chief complaint: Patient states: FLU SYMPTOMS SINCE WEDNESDAY STATES TOOK IBUPROFEN AND db TYLENOL AND STILL HAS FEVER. WITH BODY ACHES. Coronavirus screen: Client denies travel out of the [place] in the last 14 days. At this time, the client does not indicate any symptoms associated with coronavirus-19. Ebola Screen: Patient negative for fever greater than or equal to 101.5 degrees Fahrenheit, and additional compatible Ebola Virus Disease symptoms Patient denies exposure to infectious person. Patient denies travel to an Ebola-affected area in the 21 days before illness onset. No symptoms or risks identified at this time. Initial Sepsis Screen: Does the patient meet any 2 criteria? No. Patient's initial sepsis screen is negative. Does the patient have a suspected source of infection? No. Patient's initial sepsis screen is negative. Risk Assessment: Do you want to hurt yourself or someone else? Patient reports no desire to harm self or others. Onset of symptoms was October 06, 2024. 16:10 Method Of Arrival: Ambulatory db 16:10 Acuity: ABBY 3 db Triage Assessment: 16:11 General: Appears in no apparent distress. comfortable, Behavior is calm, cooperative. db Pain: Complains of pain in BODY ACHES. Neuro: Level of Consciousness is awake, alert, obeys commands, Oriented to person, place, time, situation. 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 - Infectious Disease History:: Denies. - Social history:: Smoking status: Patient reports the use of cigarette tobacco products, denies chronic smoking, but will smoke occasionally. - Family history:: not pertinent. - Hospitalizations: : No recent hospitalization is reported. Screenin:32 [facility] ED Fall Risk Assessment (Adult) History of falling in the last 3 months, iw including since admission No falls in past 3 months (0 pts) Confusion or Disorientation No (0 pts) Intoxicated or Sedated No (0 pts) Impaired Gait No (0 pts) Mobility Assist Device Used No (0 pt) Altered Elimination No (0 pt) Score/Fall Risk Level 0 - 2 = Low Risk Oriented to surroundings. Abuse screen: Denies threats or abuse. Nutritional screening: No deficits noted. Tuberculosis screening: No symptoms or risk factors identified. Assessment: 18:20 General: Appears uncomfortable, Behavior is anxious, crying. General: Reports chills iw for fever for fatigue for. Neuro: Level of Consciousness is awake, alert, obeys commands, Oriented to person, place, time, situation. Cardiovascular: Patient's skin is warm and dry. Respiratory: Respiratory effort is even, unlabored, Respiratory pattern is regular. Derm: Skin is intact, is healthy with good turgor. Musculoskeletal: Range of motion: intact in all extremities. Vital Signs: 16:10 BP 136 / 62; Pulse 82; Resp 16; Temp 100.3(O); Pulse Ox 99% on R/A; Weight 72.57 kg; db Height 5 ft. 4 in. ; 16:10 Body Mass Index 27.46 (72.57 kg, 162.56 cm) db ED Course: 14:19 COVID swab sent to lab. Flu and/or RSV swab sent to lab. Strep swab sent to lab. db 16:09 Patient arrived in ED. db 16:11 Triage completed. db 16:11 Arm band placed on Patient placed in waiting room. db 16:12 Adria Joe MD is Attending Physician. rn 17:27 XRAY Chest (1 view) In Process Unspecified. EDMS 18:28 Julia Mccray, HARIS is Primary Nurse. iw 18:45 Patient has correct armband on for positive identification. Provided Education on: . iw 18:57 No provider procedures requiring assistance completed. Patient did not have IV access iw during this emergency room visit. Administered Medications: 18:29 Drug: Acetaminophen PO 650 mg PO once Route: PO; iw 18:48 Follow up: Response: No adverse reaction iw 18:49 Drug: Oseltamivir PO 75 mg PO once Route: PO; iw 18:49 Follow up: Response: No adverse reaction iw Medication: 18:20 VIS not applicable for this client. iw Outcome: 18:28 Discharge ordered by . rn 18:58 Patient left the ED. iw 18:58 Discharged to home ambulatory, iw 18:58 Condition: good 18:58 Discharge instructions given to patient, Instructed on discharge instructions, follow up and referral plans. Demonstrated understanding of instructions, follow-up care, Signatures: Dispatcher [employer] Julia Wan RN RN iw Nieto, Roman, MD MD rn Benton, Danielle, RN RN db
--- NOTE | 2024-10-08 18:29 | EDPHYS ---
Physician Documentation [facility] Name: Karla Meeks Age: 49 yrs Sex: Female : 1975 Arrival Date: 10/08/2024 Time: 15:55 Bed 10 Private MD: ED Physician Adria Joe HPI: 10/08 17:48 This 49 yrs old Female presents to ER via Ambulatory with complaints of Flu Symptoms, rn Fever. 17:48 The patient reports fever, not measured (subjective). Onset: The symptoms/episode rn began/occurred 2 day(s) ago. Modifying factors: there are no obvious modifying factors. Severity of symptoms: At their worst the symptoms were moderate in the emergency department the symptoms are unchanged. The patient has not experienced similar symptoms in the past. Patient reports feeling sick with flulike symptoms for 2 days now. Reports fever, taking Tylenol every 4 hours and ibuprofen every 4 hours alternating, still febrile and still feels generalized weakness with headache and malaise with muscle aches. Denies shortness of breath. Reports cough.. 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 - Infectious Disease History:: Denies. - Social history:: Smoking status: Patient reports the use of cigarette tobacco products, denies chronic smoking, but will smoke occasionally. - Family history:: not pertinent. - Hospitalizations: : No recent hospitalization is reported. ROS: 17:48 Constitutional: Positive for fever and chills Eyes: Negative for injury, pain, redness, rn and discharge, ENT: Positive for congestion Cardiovascular: Negative for chest pain, palpitations, and edema, Respiratory: Positive for cough and negative for shortness of breath Abdomen/GI: Negative for abdominal pain, nausea, vomiting, diarrhea, and constipation, MS/Extremity: Negative for injury and deformity, Skin: Negative for injury, rash, and discoloration, Neuro: Negative for numbness, tingling, and seizure, Exam: 17:50 Constitutional: This is a well developed, well nourished patient who is awake, alert, rn and in no acute distress. ENT: No stridor Cardiovascular: Regular rate and rhythm. No pulse deficits. Respiratory: No increased work of breathing, no retractions or nasal flaring. MS/ Extremity: Pulses equal, no cyanosis. Neurovascular intact. Full, normal range of motion. Equal circumference. Neuro: Awake and alert, GCS 15 Vital Signs: 16:10 BP 136 / 62; Pulse 82; Resp 16; Temp 100.3(O); Pulse Ox 99% on R/A; Weight 72.57 kg; db Height 5 ft. 4 in. ; 16:10 Body Mass Index 27.46 (72.57 kg, 162.56 cm) db MDM: 16:12 Medical Screening Exam initiated rn 18:27 Differential diagnosis: viral Infection, URI. Data reviewed: vital signs, nurses notes, popcorn attendant test result(s), radiologic studies, plain films, and as a result, I will discharge patient. Counseling: I had a detailed discussion with the patient and/or guardian regarding the historical points, exam findings, and any diagnostic results supporting the discharge/admit diagnosis, lab results, radiology results, the need for outpatient follow up, to return to the emergency department if symptoms worsen or persist or if there are any questions or concerns that arise at home. Special discussion: I discussed with the patient/guardian in detail that at this point there is no indication for admission to the hospital. It is understood, however, that if the symptoms persist or worsen the patient needs to return immediately for re-evaluation. 10/08 16:16 Order name: Flu; Complete Time: 17:47 rn 10/08 16:16 Order name: SARS-COV-2 Antigen Rapid; Complete Time: 17:47 rn 10/08 16:16 Order name: Strep rn 10/08 16:58 Order name: Throat Culture EDMS 10/08 16:16 Order name: XRAY Chest (1 view); Complete Time: 18:20 rn Administered Medications: 18:29 Drug: Acetaminophen PO 650 mg PO once Route: PO; iw 18:48 Follow up: Response: No adverse reaction iw 18:49 Drug: Oseltamivir PO 75 mg PO once Route: PO; iw 18:49 Follow up: Response: No adverse reaction iw Disposition Summary: 10/08/24 18:28 Discharge Ordered Notes: Location: Home rn Problem: new rn Symptoms: have improved rn Condition: Stable rn Diagnosis - Influenza due to identified novel influenza A virus with other respiratory rn manifestations Followup: rn - With: Private Physician - When: As needed - Reason: Recheck today's complaints, Re-evaluation by your physician Discharge Instructions: - Discharge Summary Sheet rn - Influenza, Adult rn Forms: - Work release form iw - Medication Reconciliation Form rn - Antibiotic legal summer intern - Prescription Opioid Use rn - Patient Portal Instructions rn - Leadership Thank You Letter rn Prescriptions: - Tamiflu 75 mg Oral capsule - take 1 tablet ORAL route every 12 hours for 5 days; 10 tablet; Refills: 0, rn Product Selection Permitted Signatures: Dispatcher [employer] EDMS Julia Mccray RN RN iw Adria Joe MD MD rn Benton, Danielle, RN RN db Corrections: (The following items were deleted from the chart) 16:17 16:17 Influenza Screen (A \T\ B)+BA.LAB.BRZ ordered. EDMS EDMS 16:17 16:17 SARS-COV-2 Antigen Rapid+I.LAB.BRZ ordered. EDMS EDMS 16:17 16:17 Group A Streptococcus Rapid Sc+BA.LAB.BRZ ordered. EDMS EDMS 16:17 16:17 Chest Single View+RAD.RAD.BRZ ordered. EDMS EDMS
[2024-10-08] MEDS ORDERED: OSELTAMIVIR 75 MG CAP PO ONE (18:50)
[2024-10-10 16:12] VITALS: BP 136/62; TEMP 100.3; O2SAT 99
== END 2024-10-08 18:58 | disposition home or self-care (01) ==
LOC: ER 15:55
DX: J09.X2 Influenza due to identified novel influenza A virus with other respiratory manifestations (principal); I10 Essential (primary) hypertension; F17.210 Nicotine dependence, cigarettes, uncomplicated; Z11.52 Encounter for screening for COVID-19
CPT/HCPCS: 36415; 71045; 87070; 87081; 87804; 87811; 99283

== ENCOUNTER 2024-11-30 17:34 | Emergency (ER) | payer OTHER ==
--- NOTE | 2024-11-30 18:04 | ER ---
Nurse's Notes [facility] Name: Karla Meeks Age: 49 yrs Sex: Female : 1975 Arrival Date: 11/30/2024 Time: 17:34 Bed IW4 Private MD: Diagnosis: Essential (primary) hypertension;Subconjunctival hemorrhage of left eye Presentation: 11/30 17:54 Chief complaint: Headache, left sided neck pain, and popped vessel in left eye hb yesterday. Coronavirus screen: At this time, the client does not indicate any symptoms associated with coronavirus-19. Ebola Screen: No symptoms or risks identified at this time. Initial Sepsis Screen: Does the patient meet any 2 criteria? No. Patient's initial sepsis screen is negative. Does the patient have a suspected source of infection? No. Patient's initial sepsis screen is negative. Risk Assessment: Do you want to hurt yourself or someone else? Patient reports no desire to harm self or others. Onset of symptoms was November 29, 2024. 17:54 Method Of Arrival: Ambulatory hb 17:54 Acuity: ABBY 3 hb Historical: - Allergies: 17:58 No Known Allergies; hb - PMHx: 17:56 cirrhosis of liver; HEP C; Hypertension; hb - PSHx: 17:56 abdominal sx; Cholecystectomy; tubal ligation; section; hb - Immunization history:: Adult Immunizations up to date. - Infectious Disease History:: Denies. - Social history:: Smoking status: Patient/guardian denies using tobacco. - Family history:: not pertinent. Vital Signs: 17:54 BP 149 / 89; Pulse 77; Resp 16; Temp 97.5; Pulse Ox 100% on R/A; Weight 68.04 kg; hb Height 5 ft. 4 in. ; Pain 5/10; 17:54 Body Mass Index 25.75 (68.04 kg, 162.56 cm) hb 17:54 Pain Scale: Adult hb ED Course: 17:37 Patient arrived in ED. cj3 17:39 Jarett Bloom MD is Attending Physician. rt 17:56 Triage completed. hb 17:56 Arm band placed on. hb Administered Medications: No medications were administered Outcome: 18:03 Discharge ordered by . rt 18:08 Patient left the ED. hb Signatures: Fabiana Melton, HARIS RN hb Jarett Bloom MD MD rt Mikki Le cj3
--- NOTE | 2024-11-30 18:04 | EDPHYS ---
Physician Documentation [facility] Name: Karla Meeks Age: 49 yrs Sex: Female : 1975 Arrival Date: 11/30/2024 Time: 17:34 Bed IW4 Private MD: ED Physician Jarett Bloom HPI: 11/30 20:33 This 49 yrs old Female presents to ER via Ambulatory with complaints of Eye Problem, rt Neck Problem, Ear Pain, High Blood Pressure. 20:33 Patient presents to the ED with reported hypertension, she took her self off of her rt blood pressure medicines, recommended to take a dose yesterday. Reports pain to the left side of her neck as well as a subconjunctival hemorrhage on the left eye. She denies other acute complaints at this time, symptoms are mild severity, no other aggravating alleviating factors, denies chest pain, shortness of breath.. Historical: - Allergies: 17:58 No Known Allergies; hb - PMHx: 17:56 cirrhosis of liver; HEP C; Hypertension; hb - PSHx: 17:56 abdominal sx; Cholecystectomy; tubal ligation; section; hb - Immunization history:: Adult Immunizations up to date. - Infectious Disease History:: Denies. - Social history:: Smoking status: Patient/guardian denies using tobacco. - Family history:: not pertinent. ROS: 20:33 Constitutional: Negative for fever, chills, and weight loss, Cardiovascular: Negative rt for chest pain, palpitations, and edema, Respiratory: Negative for shortness of breath, cough, wheezing, and pleuritic chest pain, Abdomen/GI: Negative for abdominal pain, nausea, vomiting, diarrhea, and constipation, Skin: Negative for injury, rash, and discoloration, Neuro: Negative for headache, weakness, numbness, tingling, and seizure, 20:33 Eyes: Positive for redness, Exam: 20:33 Constitutional: This is a well developed, well nourished patient who is awake, alert, rt and in no acute distress. Head/Face: Normocephalic, atraumatic. Chest/axilla: Normal chest wall appearance and motion. Nontender with no deformity. No lesions are appreciated. Cardiovascular: Regular rate and rhythm with a normal S1 and S2. No gallops, murmurs, or rubs. Normal PMI, no JVD. No pulse deficits. Respiratory: Lungs have equal breath sounds bilaterally, clear to auscultation and percussion. No rales, rhonchi or wheezes noted. No increased work of breathing, no retractions or nasal flaring. Abdomen/GI: Soft, non-tender, with normal bowel sounds. No distension or tympany. No guarding or rebound. No evidence of tenderness throughout. Skin: Warm, dry with normal turgor. Normal color with no rashes, no lesions, and no evidence of cellulitis. MS/ Extremity: Pulses equal, no cyanosis. Neurovascular intact. Full, normal range of motion. Neuro: Awake and alert, GCS 15, oriented to person, place, time, and situation. Cranial nerves II-XII grossly intact. Motor strength 5/5 in all extremities. Sensory grossly intact. Cerebellar exam normal. Normal gait. 20:33 Eyes: Subconjunctival hemorrhage on the left eye, extraocular muscles are intact. Vital Signs: 17:54 BP 149 / 89; Pulse 77; Resp 16; Temp 97.5; Pulse Ox 100% on R/A; Weight 68.04 kg; hb Height 5 ft. 4 in. ; Pain 5/10; 17:54 Body Mass Index 25.75 (68.04 kg, 162.56 cm) hb 17:54 Pain Scale: Adult hb MDM: 17:54 Medical Screening Exam initiated rt 20:33 Differential diagnosis: Subconjunctival hemorrhage, hypertension. Data reviewed: vital rt signs, nurses notes. Test considered but Not performed: Other Details Offered EKG and labs to the patient, she states that she does not believe that they are necessary, would prefer to forego testing if possible. Believe that this is reasonable as there is no signs of endorgan dysfunction, she is stable for outpatient care, return precautions discussed.. Counseling: I had a detailed discussion with the patient and/or guardian regarding the historical points, exam findings, and any diagnostic results supporting the discharge/admit diagnosis, the presence of at least one elevated blood pressure reading (>120/80) during this emergency department visit, the need for outpatient follow up, to return to the emergency department if symptoms worsen or persist or if there are any questions or concerns that arise at home. Response to treatment: the patient's symptoms have markedly improved after treatment. Administered Medications: No medications were administered Disposition Summary: 11/30/24 18:03 Discharge Ordered Notes: Location: Home rt Problem: new rt Symptoms: have improved rt Condition: Stable rt Diagnosis - Essential (primary) hypertension rt - Subconjunctival hemorrhage of left eye rt Followup: rt - With: Private Physician - When: 2 - 3 days - Reason: Discharge Instructions: - Discharge Summary Sheet rt - Hypertension, Adult rt - Subconjunctival Hemorrhage rt Forms: - Work release form iw - Medication Reconciliation Form rt - Antibiotic Education rt - Prescription Opioid Use rt - Patient Portal Instructions rt - Leadership Thank You Letter rt Prescriptions: - Norvasc 10 mg Oral Tablet - take 1 tablet ORAL route once daily; 30 tablet; Refills: 0, Product Selection rt Permitted Signatures: Fabiana Melton RN RN Jarett Daniel MD MD rt
[2024-11-30 18:26] VITALS: BP 149/89; TEMP 97.5; O2SAT 100
== END 2024-11-30 18:08 | disposition home or self-care (01) ==
LOC: ER 17:34
DX: I10 Essential (primary) hypertension (principal); H11.32 Conjunctival hemorrhage, left eye; M54.2 Cervicalgia
CPT/HCPCS: 99281

== ENCOUNTER 2025-05-20 03:05 | Emergency (ER) | payer OTHER ==
--- NOTE | 2025-05-20 03:29 | ER ---
Nurse's Notes [facility] Name: Karla Meeks Age: 50 yrs Sex: Female : 1975 Arrival Date: 05/20/2025 Time: 03:05 Bed 8 Private MD: Diagnosis: Low back pain;Unspecified symptoms and signs involving the musculoskeletal system Presentation: 05/20 03:21 Chief complaint: Patient states: c/o mid lower back pain starting yesterday, al5 progressively got worse today. states she was lifting a toilet and was placed in an awkward position. Coronavirus screen: At this time, the client does not indicate any symptoms associated with coronavirus-19. Ebola Screen: No symptoms or risks identified at this time. Initial Sepsis Screen: Does the patient meet any 2 criteria? No. Patient's initial sepsis screen is negative. Does the patient have a suspected source of infection? No. Patient's initial sepsis screen is negative. Risk Assessment: Do you want to hurt yourself or someone else? Patient reports no desire to harm self or others. Onset of symptoms was May 18, 2025. 03:21 Method Of Arrival: Ambulatory al5 03:21 Acuity: ABBY 3 al5 Triage Assessment: 03:21 General: Appears in no apparent distress. uncomfortable, Behavior is calm, cooperative. al5 Pain: Complains of pain in lumbar area. EENT: No signs and/or symptoms were reported regarding the EENT system. Neuro: Level of Consciousness is awake, alert, obeys commands, Oriented to person, place, time, situation. Cardiovascular: Capillary refill < 3 seconds Patient's skin is warm and dry. Respiratory: Airway is patent Respiratory effort is even, unlabored, Respiratory pattern is regular, symmetrical. GI: Abdomen is flat, non-distended. : No signs and/or symptoms were reported regarding the genitourinary system. Derm: Skin is intact, is healthy with good turgor, Skin is pink, warm \T\ dry. normal. Musculoskeletal: Circulation, motion, and sensation intact. Range of motion: intact in all extremities, Reports pain in right low back and left low back and lumbar area. 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 - Infectious Disease History:: Denies. - Family history:: not pertinent. - Social history:: Smoking status: Patient reports the use of cigarette tobacco products, smokes 0.33 packs per day. Screenin:23 [facility] ED Fall Risk Assessment (Adult) History of falling in the last 3 months, al5 including since admission No falls in past 3 months (0 pts) Confusion or Disorientation No (0 pts) Intoxicated or Sedated No (0 pts) Impaired Gait No (0 pts) Mobility Assist Device Used No (0 pt) Altered Elimination No (0 pt) Score/Fall Risk Level 0 - 2 = Low Risk Oriented to surroundings, Maintained a safe environment, Hourly rounding (assess needs \T\ fall precautionary measures) done. Abuse screen: Denies threats or abuse. Denies injuries from another. Nutritional screening: No deficits noted. Tuberculosis screening: No symptoms or risk factors identified. Assessment: 03:23 Reassessment: see triage assessment. al5 03:36 Reassessment: discharge pending UA. al5 04:51 Reassessment: Patient appears in no apparent distress at this time. Patient and/or al5 family updated on plan of care and expected duration. Pain level reassessed. Patient is alert, oriented x 3, equal unlabored respirations, skin warm/dry/pink. Patient states feeling better. Patient states symptoms have improved. Vital Signs: 03:21 BP 151 / 75; Pulse 63; Resp 16; Temp 98.6(O); Pulse Ox 98% on R/A; Weight 74.84 kg; al5 Height 5 ft. 4 in. ; 03:30 BP 141 / 67; Pulse 57; Resp 18; Pulse Ox 98% on R/A; al5 04:00 BP 135 / 76; Pulse 59; Resp 16; Pulse Ox 97% on R/A; al5 04:30 BP 134 / 69; Pulse 59; Resp 16; Pulse Ox 97% on R/A; al5 03:21 Body Mass Index 28.32 (74.84 kg, 162.56 cm) az5 ED Course: 03:07 Patient arrived in ED. [email or web address] 03:09 Conrado Blue MD is Attending Physician. jairo 03:21 Jessika Gallardo, RN is Primary Nurse. al5 03:21 Arm band placed on right wrist. Patient placed in the treatment room, in view of staff al5 members, on pulse oximetry. 03:23 Triage completed. al5 03:23 Patient has correct armband on for positive identification. Bed in low position. Call al5 light in reach. Side rails up X 1. Provided Education on: medications. 03:23 No provider procedures requiring assistance completed. Patient did not have IV access al5 during this emergency room visit. 03:28 Isaiah Pineda MD is Referral Physician. [facility] Administered Medications: 03:54 Drug: Diazepam PO 10 mg PO once Route: PO; al5 04:51 Follow up: Response: No adverse reaction; Pain is decreased al5 03:54 Drug: [place] PO 10 mg-325 mg 1 tabs PO once Route: PO; al5 04:51 Follow up: Response: No adverse reaction; Pain is decreased al5 03:54 Drug: Ketorolac IM 60 mg IM once Route: IM; Site: right gluteus; al5 04:51 Follow up: Response: No adverse reaction; Pain is decreased al5 03:54 Drug: Dexamethasone PO 10 mg PO once Route: PO; al5 04:51 Follow up: Response: No adverse reaction; Pain is decreased al5 Medication: 03:23 VIS not applicable for this client. al5 Outcome: 03:29 Discharge ordered by . [facility] 04:52 Discharged to home ambulatory, with significant other, al5 04:52 Condition: good 04:52 Discharge instructions given to patient, Instructed on discharge instructions, follow up and referral plans. medication usage, Demonstrated understanding of instructions, follow-up care, medications, Prescriptions given X 4, 04:54 Patient left the ED. al5 Signatures: Conrado Blue MD MD cha Jeffries, Jennifer jj6 Jessika Gallardo, HARIS RN al5
--- NOTE | 2025-05-20 03:29 | EDPHYS ---
Physician Documentation [facility] Name: Karla Meeks Age: 50 yrs Sex: Female : 1975 Arrival Date: 05/20/2025 Time: 03:05 Bed 8 Private MD: DANA Physician Conrado Blue HPI: 05/20 03:18 This 50 yrs old Female presents to ER via Unassigned with complaints of Low jairo Back Pain. 03:18 The patient presents with pain that is acute. The symptoms are located in the low back. jairo The pain does not radiate. The problem was sustained when bending over, when lifting. Modifying factors: The patient symptoms are alleviated by nothing. Associated signs and symptoms: The patient has no apparent associated signs or symptoms. Severity of symptoms: At their worst the symptoms were moderate, in the emergency department the symptoms are unchanged. The patient has not experienced similar symptoms in the past. 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 - Infectious Disease History:: Denies. - Family history:: not pertinent. - Social history:: Smoking status: Patient reports the use of cigarette tobacco products, smokes 0.33 packs per day. ROS: 03:18 Constitutional: Negative for fever, chills, and weight loss, Eyes: Negative for injury, jairo pain, redness, and discharge, ENT: Negative for injury, pain, and discharge, Neck: Negative for injury, pain, and swelling, Cardiovascular: Negative for chest pain, palpitations, and edema, Respiratory: Negative for shortness of breath, cough, wheezing, and pleuritic chest pain, Abdomen/GI: Negative for abdominal pain, nausea, vomiting, diarrhea, and constipation, : Negative for injury, bleeding, discharge, and swelling, MS/Extremity: Negative for injury and deformity, Skin: Negative for injury, rash, and discoloration, Neuro: Negative for headache, weakness, numbness, tingling, and seizure, Psych: Negative for depression, anxiety, suicide ideation, homicidal ideation, and hallucinations, Allergy/Immunology: Negative for hives, rash, and allergies, Endocrine: Negative for neck swelling, polydipsia, polyuria, polyphagia, and marked weight changes, Hematologic/Lymphatic: Negative for swollen nodes, abnormal bleeding, and unusual bruising, 03:18 Back: Positive for injury or acute deformity, decreased range of motion, pain at rest, pain with movement, radiated pain, of the lumbar area, left low back and right low back, Exam: :18 Constitutional: This is a well developed, well nourished patient who is awake, alert, jairo and in no acute distress. Head/Face: Normocephalic, atraumatic. Eyes: Pupils equal round and reactive to light, extra-ocular motions intact. Lids and lashes normal. Conjunctiva and sclera are non-icteric and not injected. Cornea within normal limits. Periorbital areas with no swelling, redness, or edema. ENT: Nares patent. No nasal discharge, no septal abnormalities noted. Tympanic membranes are normal and external auditory canals are clear. Oropharynx with no redness, swelling, or masses, exudates, or evidence of obstruction, uvula midline. Mucous membranes moist. Neck: Trachea midline, no thyromegaly or masses palpated, and no cervical lymphadenopathy. Supple, full range of motion without nuchal rigidity, or vertebral point tenderness. No Meningismus. Chest/axilla: Normal chest wall appearance and motion. Nontender with no deformity. No lesions are appreciated. Cardiovascular: Regular rate and rhythm with a normal S1 and S2. No gallops, murmurs, or rubs. Normal PMI, no JVD. No pulse deficits. Respiratory: Lungs have equal breath sounds bilaterally, clear to auscultation and percussion. No rales, rhonchi or wheezes noted. No increased work of breathing, no retractions or nasal flaring. Abdomen/GI: Soft, non-tender, with normal bowel sounds. No distension or tympany. No guarding or rebound. No evidence of tenderness throughout. Skin: Warm, dry with normal turgor. Normal color with no rashes, no lesions, and no evidence of cellulitis. MS/ Extremity: Pulses equal, no cyanosis. Neurovascular intact. Full, normal range of motion., bilateral aka Neuro: Awake and alert, GCS 15, oriented to person, place, time, and situation. Cranial nerves II-XII grossly intact. Motor strength 5/5 in all extremities. Sensory grossly intact. Cerebellar exam normal. Normal gait. Psych: Awake, alert, with orientation to person, place and time. Behavior, mood, and affect are within normal limits. 03:18 Back: pain, that is moderate, of the lumbar area, left low back and right low back, ROM is painful, normal spinal alignment noted, CVA tenderness, is absent, vertebral tenderness, is not appreciated, muscle spasm, is not present, Vital Signs: 03:21 BP 151 / 75; Pulse 63; Resp 16; Temp 98.6(O); Pulse Ox 98% on R/A; Weight 74.84 kg; al5 Height 5 ft. 4 in. ; 03:30 BP 141 / 67; Pulse 57; Resp 18; Pulse Ox 98% on R/A; al5 04:00 BP 135 / 76; Pulse 59; Resp 16; Pulse Ox 97% on R/A; al5 04:30 BP 134 / 69; Pulse 59; Resp 16; Pulse Ox 97% on R/A; al5 03:21 Body Mass Index 28.32 (74.84 kg, 162.56 cm) al5 MDM: 03:09 Medical Screening Exam initiated jairo 05/20 03:23 Order name: SANTOS Rfx New Cult if indicated; Complete Time: 04:05 jairo Administered Medications: 03:54 Drug: Diazepam PO 10 mg PO once Route: PO; al5 04:51 Follow up: Response: No adverse reaction; Pain is decreased al5 03:54 Drug: Seth PO 10 mg-325 mg 1 tabs PO once Route: PO; al5 04:51 Follow up: Response: No adverse reaction; Pain is decreased al5 03:54 Drug: Ketorolac IM 60 mg IM once Route: IM; Site: right gluteus; al5 04:51 Follow up: Response: No adverse reaction; Pain is decreased al5 03:54 Drug: Dexamethasone PO 10 mg PO once Route: PO; al5 04:51 Follow up: Response: No adverse reaction; Pain is decreased al5 Disposition Summary: 05/20/25 03:29 Discharge Ordered Notes: Location: Home jairo Problem: new jairo Symptoms: have improved jairo Condition: Stable jairo Diagnosis - Low back pain jairo - Unspecified symptoms and signs involving the musculoskeletal system jairo Followup: jairo - With: Private Physician - When: 2 - 3 days - Reason: Recheck today's complaints, Continuance of care, Re-evaluation by your physician Followup: jairo - With: Isaiah Pineda MD - When: 2 - 3 days - Reason: Recheck today's complaints, Re-evaluation by your physician Discharge Instructions: - Discharge Summary Sheet jairo - Acute Back Pain, Adult jairo - Chronic Back Pain jairo - Musculoskeletal Pain [facility] Forms: - Medication Reconciliation Form [facility] - Antibiotic Education jairo - Prescription Opioid Use jairo - Patient Portal Instructions [facility] - Leadership Thank You Letter [facility] - Work release form kb4 Prescriptions: - Ibuprofen 600 mg Oral Tablet - take 1 tablet ORAL route every 6 hours As needed take with food; 30 tablet; [facility] Refills: 0, Product Selection Permitted - methocarbamol 750 mg Oral tablet - take 1 tablet ORAL route every 4 hours; 28 tablet; Refills: 0, Product [facility] Selection Permitted - Tylenol-Codeine #3 300mg-30mg Oral tablet - take 2 tablets ORAL route every 6 hours As needed; 16 tablet; Refills: 0, [facility] Product Selection Permitted - Dexamethasone 4mg Oral tablet - take 1 tablet ORAL route daily for 4 days; 4 tablet; Refills: 0, Product [facility] Selection Permitted Signatures: Dispatcher [employer] Conrado Monique MD MD cha Langhorst, Amanda, RN RN al5 Corrections: (The following items were deleted from the chart) 03:23 03:23 UA Rfx New Cult if indicated+U.LAB.BRZ ordered. EDMS EDMS
[2025-05-20] MEDS ORDERED: KETOROLAC 30 MG/ML INJ ONE (03:44)
[2025-05-20] MEDS ORDERED: HYDROCODONE/APAP 10/325 TAB ONE (03:46)
[2025-05-20] MEDS ORDERED: DIAZEPAM 5 MG TABLET ONE (03:46)
[2025-05-20 03:48] LABS: Urine Culture Reflex Order NOT NEEDED; Urine Microscopic Reflex YN ORDER UMIC
[2025-05-20 04:58] VITALS: TEMP 98.6
[2025-05-20 05:02] VITALS: O2SAT 97
[2025-05-20 05:03] VITALS: BP 134/69
== END 2025-05-20 04:54 | disposition home or self-care (01) ==
LOC: ER 03:05
DX: R29.91 Unspecified symptoms and signs involving the musculoskeletal system (principal)
CPT/HCPCS: 81001; 96372; 99284; J8540

== ENCOUNTER 2025-06-25 16:08 | Emergency (ER) | payer OTHER ==
[2025-06-25 17:12] LABS: Absolute Lymphocytes (CBC) 1.7 K/uL (0.7-4.9); Hematocrit 44.2 % (36.0-45.0); Hemoglobin 15.3 g/dL (12.0-15.0); MCH 29.2 pg (27.0-35.0); MCHC 34.7 g/dL (32.0-36.0); MCV 84.3 fL (80-100); MPV 8.1 fL (7.6-11.3); Nucleated RBC Absolute Count 0.0 (0-0); Nucleated Red Blood Cells % 0.4 % (0-0); RBC Red Blood Cell Count 5.24 M/uL (3.86-4.86); White Blood Count 5.90 thou/uL (4.3-10.9)
[2025-06-25 17:43] LABS: ALT/SGPT 42.0 U/L (13-56); AST/SGOT 35.0 U/L (15-37); Albumin 3.5 g/dL (3.4-5.0); Albumin/Globulin Ratio 0.9 (1.1-1.8); Alkaline Phosphatase 78.0 U/L (45-117); Anion Gap 6.4 mEq/L (5.0-15.0); BUN Blood Urea Nitrogen 13.0 mg/dL (7-18); Globulin 4.0 g/dL (2.3-3.5); Glucose Level 116.0 mg/dL (74-106); Lipase 40.0 U/L (13-75); Potassium 3.4 mEq/L (3.5-5.1)
[2025-06-25] MEDS ORDERED: POTASSIUM 25 MEQ EFFERV TAB ONE (17:50)
[2025-06-25] MEDS ORDERED: NA CHLORIDE 0.9% 1,000 ML ONE (17:50)
--- NOTE | 2025-06-25 18:11 | ER ---
Nurse's Notes [facility] Name: Karla Meeks Age: 50 yrs Sex: Female : 1975 Arrival Date: 06/25/2025 Time: 16:08 Bed 26 Private MD: Diagnosis: Dehydration;Hypokalemia Presentation: 06/25 16:21 Chief complaint: Patient states: BODY CRAMPS IN BACK AND STOMACH THAT STARTED LAST dd2 NIGHT AND PROGRESSED TO ENTIRE BODY TODAY. Coronavirus screen: At this time, the client does not indicate any symptoms associated with coronavirus-19. Ebola Screen: No symptoms or risks identified at this time. Initial Sepsis Screen: Does the patient meet any 2 criteria? No. Patient's initial sepsis screen is negative. Does the patient have a suspected source of infection? No. Patient's initial sepsis screen is negative. Risk Assessment: Do you want to hurt yourself or someone else? Patient reports no desire to harm self or others. Onset of symptoms was June 24, 2025. 16:21 Method Of Arrival: Ambulatory dd2 16:21 Acuity: ABBY 3 dd2 Triage Assessment: 16:27 General: Appears in no apparent distress. uncomfortable, Behavior is calm, cooperative, dd2 appropriate for age. Pain: Complains of pain in GENERALIZED. Musculoskeletal: Reports pain in GENERALIZED. 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 - Infectious Disease History:: Denies. - Social history:: Smoking status: Patient reports the use of cigarette tobacco products, smokes one-half pack cigarettes per day. Screenin:50 [facility] ED Fall Risk Assessment (Adult) History of falling in the last 3 months, kj2 including since admission No falls in past 3 months (0 pts) Confusion or Disorientation No (0 pts) Intoxicated or Sedated No (0 pts) Impaired Gait No (0 pts) Mobility Assist Device Used No (0 pt) Altered Elimination No (0 pt) Score/Fall Risk Level 0 - 2 = Low Risk Maintained a safe environment, Hourly rounding (assess needs \T\ fall precautionary measures) done. Abuse screen: Denies threats or abuse. Denies injuries from another. Nutritional screening: No deficits noted. Tuberculosis screening: No symptoms or risk factors identified. Assessment: 16:50 General: Appears in no apparent distress. Behavior is cooperative. Pain: Complains of kj2 pain in back, abdomen Pain currently is 6 out of 10 on a pain scale. Neuro: Level of Consciousness is awake, alert, obeys commands, Oriented to person, place, time, situation. Cardiovascular: Patient's skin is warm and dry. Respiratory: Airway is patent Respiratory effort is unlabored. GI: No signs and/or symptoms were reported involving the gastrointestinal system. : No signs and/or symptoms were reported regarding the genitourinary system. Vital Signs: 16:21 BP 148 / 93; Pulse 70; Resp 16; Temp 97.1; Pulse Ox 99% on R/A; Weight 72.57 kg; Height dd2 5 ft. 4 in. ; Pain 5/10; 17:00 BP 158 / 78; Pulse 64; Resp 18; Pulse Ox 100% on R/A; kj2 18:05 BP 138 / 86; Pulse 62; Resp 18; Temp 98; Pulse Ox 100% on R/A; kj2 16:21 Body Mass Index 27.46 (72.57 kg, 162.56 cm) dd2 16:21 Pain Scale: Adult dd2 ED Course: 16:11 Patient arrived in ED. im 16:11 [facility] sb4 16:11 Sarah Peters MD is Attending Physician. sb4 16:27 Triage completed. dd2 16:27 Arm band placed on left wrist. dd2 16:43 Batool Alvarenga, HARIS is Primary Nurse. kj2 16:50 Patient has correct armband on for positive identification. Bed in low position. Call kj2 light in reach. Adult w/ patient. Provided Education on: call light. 17:09 Inserted saline lock: 22 gauge in left antecubital area, using aseptic technique. Blood kj2 collected. Flushed with 10 mL NS. 18:17 No provider procedures requiring assistance completed. IV discontinued, intact, kj2 bleeding controlled, No redness/swelling at site. Pressure dressing applied. Administered Medications: 18:22 Discontinued: ns 0.9% 1000 ml IV at 1 bolus Per protocol; to be given as a bolus over kj2 60 minutes 17:54 Drug: NS 0.9% IV 1000 ml IV at 1 bolus Per protocol; to be given as a bolus over 60 kj2 minutes Route: IV; Rate: 1 bolus; Site: right antecubital; 18:22 Follow up: IV Status: Completed infusion; Order to discontinue infusion; IV Intake: kj2 500ml 17:54 Drug: Potassium PO Effervescent Tablet 25 mEq PO once; dissolve in 4 ounces of water or kj2 juice Route: PO; 18:19 Follow up: Response: No adverse reaction kj2 Medication: 18:18 VIS not applicable for this client. kj2 Intake: 18:22 IV: 500ml; Total: 500ml. kj2 Outcome: 18:11 Discharge ordered by . sb4 18:18 Discharged to home ambulatory, with family, kj2 18:18 Condition: stable 18:18 Instructed on discharge instructions, follow up and referral plans. Demonstrated understanding of instructions, follow-up care, 18:31 Patient left the ED. kj2 Signatures: Mary Tuttle PA-C PA-C sb4 Carmen Lott Krystal, RN RN kj2 ANITA COLBY RN RN dd2 Corrections: (The following items were deleted from the chart) 16:29 16:27 Allergies: No Known Allergies; dd2 dd2
--- NOTE | 2025-06-25 18:11 | EDPHYS ---
Physician Documentation [facility] Name: Karla Meeks Age: 50 yrs Sex: Female : 1975 Arrival Date: 06/25/2025 Time: 16:08 Bed 26 Private MD: ED Physician Sarah Peters HPI: 06/25 16:49 This 50 yrs old Female presents to ER via Ambulatory with complaints of body cramps. sb4 16:49 Patient states that since last night, she has been experiencing cramps all over her sb4 body, and intermittent numbness/tingling in her hands. She states that she called her PCP and was instructed to come to the ED to check her labs because she has a history of liver disease/cirrhosis. She denies any abdominal pain, nausea, vomiting, diarrhea, melanotic stools, fever, chills, chest pain, shortness of breath. 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 - Infectious Disease History:: Denies. - Social history:: Smoking status: Patient reports the use of cigarette tobacco products, smokes one-half pack cigarettes per day. ROS: 16:49 Cardiovascular: Negative for chest pain, palpitations, and edema, sb4 16:49 Constitutional: Positive for Per HPI, 16:49 All other systems are negative, Exam: 16:49 Constitutional: This is a well developed, well nourished patient who is awake, alert, sb4 and in no acute distress. Head/Face: Normocephalic, atraumatic. Eyes: Extra-ocular motions intact. Periorbital areas with no swelling, redness, or edema. ENT: Mucous membranes moist. Cardiovascular: Regular rate and rhythm with a normal S1 and S2. Respiratory: No increased work of breathing, no retractions or nasal flaring. Abdomen/GI: Soft, non-tender, no distension. Skin: Warm, dry with normal turgor. Normal color with no rashes, no lesions, and no evidence of cellulitis. Vital Signs: 16:21 BP 148 / 93; Pulse 70; Resp 16; Temp 97.1; Pulse Ox 99% on R/A; Weight 72.57 kg; Height dd2 5 ft. 4 in. ; Pain 5/10; 17:00 BP 158 / 78; Pulse 64; Resp 18; Pulse Ox 100% on R/A; kj2 18:05 BP 138 / 86; Pulse 62; Resp 18; Temp 98; Pulse Ox 100% on R/A; kj2 16:21 Body Mass Index 27.46 (72.57 kg, 162.56 cm) dd2 16:21 Pain Scale: Adult dd2 MDM: 16:12 Medical Screening Exam initiated sb4 17:37 Differential diagnosis: Liver failure, hypokalemia, dehydration. sb4 18:10 Data reviewed: vital signs, nurses notes, lab test result(s), and as a result, I will sb4 discharge patient. Counseling: I had a detailed discussion with the patient and/or guardian regarding the historical points, exam findings, and any diagnostic results supporting the discharge/admit diagnosis, lab results, the need for outpatient follow up, for definitive care, to return to the emergency department if symptoms worsen or persist or if there are any questions or concerns that arise at home. 06/25 16:27 Order name: CBC with Diff; Complete Time: 17:15 sb4 06/25 16:27 Order name: CMP; Complete Time: 17:43 sb4 06/25 16:27 Order name: Lipase; Complete Time: 17:43 sb4 06/25 16:27 Order name: IV Saline Lock; Complete Time: 17:08 sb4 06/25 16:27 Order name: Labs collected and sent; Complete Time: 17:08 sb4 Administered Medications: 18:22 Discontinued: ns 0.9% 1000 ml IV at 1 bolus Per protocol; to be given as a bolus over kj2 60 minutes 17:54 Drug: NS 0.9% IV 1000 ml IV at 1 bolus Per protocol; to be given as a bolus over 60 kj2 minutes Route: IV; Rate: 1 bolus; Site: right antecubital; 18:22 Follow up: IV Status: Completed infusion; Order to discontinue infusion; IV Intake: kj2 500ml 17:54 Drug: Potassium PO Effervescent Tablet 25 mEq PO once; dissolve in 4 ounces of water or kj2 juice Route: PO; 18:19 Follow up: Response: No adverse reaction kj2 Disposition Summary: 06/25/25 18:11 Discharge Ordered Notes: Location: Home sb4 Problem: new sb4 Symptoms: have improved sb4 Condition: Stable sb4 Diagnosis - Dehydration sb4 - Hypokalemia sb4 Followup: sb4 - With: Private Physician - When: As needed - Reason: Recheck today's complaints, Re-evaluation by your physician Discharge Instructions: - Discharge Summary Sheet sb4 - Dehydration, Adult sb4 - Hypokalemia sb4 Forms: - Patient Portal Instructions sb4 - Leadership Thank You Letter sb4 Signatures: Dispatcher [employer] Mary Velazquez PA-C PA-C sb4 Batool Alvarenga RN RN kj2 ANITA COLBY RN RN dd2 Corrections: (The following items were deleted from the chart) 16:27 16:27 CBC+H.LAB.BRZ ordered. EDMS EDMS 16:27 16:27 COMPREHENSIVE METABOLIC PANEL+C.LAB.BRZ ordered. EDMS EDMS 16:27 16:27 LIPASE+C.LAB.BRZ ordered. EDMS EDMS 16:29 16:27 Allergies: No Known Allergies; dd2 dd2
[2025-06-25 18:55] VITALS: O2SAT 100
[2025-06-25 18:57] VITALS: BP 138/86; TEMP 98
== END 2025-06-25 18:31 | disposition home or self-care (01) ==
LOC: ER 16:08
DX: E86.0 Dehydration (principal); E87.6 Hypokalemia; F17.210 Nicotine dependence, cigarettes, uncomplicated
CPT/HCPCS: 85025; 36415; 83690; 80053; 99284; J7030